=== PATIENT | male | born 1985 | race Two or more races ===

== ENCOUNTER 2023-08-13 12:25 | Emergency (ER) | payer BC, OTHER ==
[~2023-08-13] VITALS: Ht 157.5 cm; Wt 75.4 kg
[2023-08-13 14:15] VITALS: BP 117/53; PULSE 74; RESP 16; TEMP 98.6; O2SAT 96
== END 2023-08-13 15:32 | disposition home or self-care (01) ==
LOC: ER 12:29
DX: M67.442 Ganglion, left hand (principal); F17.210 Nicotine dependence, cigarettes, uncomplicated; Z88.2 Allergy status to sulfonamides
CPT/HCPCS: 73110; 73130